=== PATIENT | female | born 1985 | race Caucasian/White ===

== ENCOUNTER 2016-08-08 08:02 | Day surgery (SDC) | payer OTHER ==
[2016-08-08 08:09] VITALS: BMI 27.0
[2016-08-08 09:05] VITALS: TEMP 97.8
[2016-08-08 09:43] VITALS: BP 110/77
[2016-08-08 10:36] VITALS: PULSE 63
--- NOTE | 2016-08-09 11:22 | PATH ---
Surgical Pathology Report Patient Name: CHERYL HUSAIN [facility]. Rec. #: [id number] /Age/Gender: 1985 (Age: 31) / F Account: [id number] Location: [facility]-ENDOSCOPY Taken: 08/08/2016 Received: 08/08/2016 Reported: 08/09/2016 Physicians: Jimmie Hooper M.D. Specimen(s) Received A: BX EROSIVE GASTRITIS B: BX DISTAL ESOPHAGUS Clinical History Epigastric pain, GERD Erosive gastritis, extrinsic compression in body of stomach Final Diagnosis A. STOMACH, EROSIVE GASTRITIS, BIOPSY: GASTRIC OXYNTIC MUCOSA WITH ACTIVE MODERATE TO MARKED CHRONIC GASTRITIS WITH FOCAL SURFACE EROSION. IMMUNOSTAIN FOR H. PYLORI IS POSITIVE FOR ORGANISMS (MANY ORGANISMS). B. ESOPHAGUS, DISTAL, BIOPSY: SQUAMOUS EPITHELIUM WITH CHRONIC INFLAMMATION AND REFLUX TYPE CHANGES. NO COLUMNAR EPITHELIUM PRESENT (NO INTESTINAL METAPLASIA/FELDMAN'S ESOPHAGUS IDENTIFIED). Electronically Signed Matt Saunders M.D. Gross Description A. Received in formalin, labeled "biopsy erosive gastritis" are 3 saldaña, irregular portions of soft tissue ranging from 0.2-0.3 cm in greatest dimension. The specimens are submitted in toto in one cassette. B. Received in formalin, labeled "biopsy distal esophagus" is a saldaña, irregular portion of soft tissue measuring 0.3 cm in greatest dimension. The specimen is submitted in toto in one cassette. /08/08/2016 saudi08/08/2016
== END 2016-08-08 10:37 | disposition home or self-care (01) ==
LOC: JASU-ENDO 08:02
PROVIDERS: ATTEND Internal Medicine Gastroenterology
PROC: 0DB68ZX Excision of Stomach, Via Natural or Artificial Opening Endoscopic, Diagnostic (ICD-10-PCS; 2016-08-08)
PROC: 0DB38ZX Excision of Lower Esophagus, Via Natural or Artificial Opening Endoscopic, Diagnostic (ICD-10-PCS; principal; 2016-08-08 08:30)
DX: K29.60 Other gastritis without bleeding (principal); K25.7 Chronic gastric ulcer without hemorrhage or perforation; K20.9 Esophagitis, unspecified; B96.81 Helicobacter pylori [H. pylori] as the cause of diseases classified elsewhere
CPT/HCPCS: 84703; 88305-TC; 88342-TC

== ENCOUNTER 2017-08-22 12:30 | Inpatient (IN) | payer OTHER ==
[2017-08-22] MEDS ORDERED: DEXTROSE 5%-LACTATED RINGERS 500 ML IV SCH (12:40)
[2017-08-22] MEDS ORDERED: DEXTROSE 5%-LACTATED RINGERS 1,000 ML IV SCH (13:10)
[2017-08-22 15:29] VITALS: BMI 30.9
[2017-08-22] MEDS: DEXTROSE 5%-LACTATED RINGERS 1,000 ML IV SCH (16:15)
[2017-08-22] MEDS ORDERED: TUBERCULIN PPD 5 TU/0.1ML SYRINGE (IN PATIENT USE ONLY) ID ONE (16:15)
[2017-08-22 17:54] LABS: BASO % 0.2 % (0-2.0); HEMATOCRIT 38.1 % (32.4-45.2); HEMOGLOBIN 12.7 GM/dL (10.7-15.3); LYMPH % 5.3 % (8-40); MCH 27.5 pg (25.7-33.7); MCHC 33.3 g/dl (32.0-36.0); MEAN CELL VOLUME 82.7 fl (80-96); MONO % 5.1 % (3.8-10.2); NEUT % 89.4 % (42.8-82.8); PLATELET COUNT 234 K/MM3 (134-434); RBC 4.61 M/mm3 (3.60-5.2); RDW 14.6 % (11.6-15.6); WHITE BLOOD COUNT 11.5 K/mm3 (4.0-10.0)
[2017-08-22 18:11] LABS: INR 0.98 (0.82-1.09); PROTHROMBIN TIME (PATIENT) 11.1 SEC (9.7-13.0)
[2017-08-22 18:14] LABS: ACTIVATED PTT 23.8 SECONDS (25.2-36.5)
[2017-08-22 18:24] LABS: ANION GAP 10 (8-16); BLOOD UREA NITROGEN 4 mg/dL (7-18); CALCIUM 8.5 mg/dL (8.5-10.1); CHLORIDE 104 mmol/L (98-107); CO2 24 mmol/L (21-32); CREATININE 0.5 mg/dL (0.55-1.02); GLUCOSE,RANDOM 94 mg/dL (74-106); POTASSIUM 3.8 mmol/L (3.5-5.1); SODIUM 138 mmol/L (136-145)
--- NOTE | 2017-08-22 19:57 | HP ---
Past Medical History - Admission History of Present Illness: 32 yo @ 39 3/7 wks by first trimester ultrasound, EDC 08/26/2017 complicated by: History of infertility, s/p failed IVF x 3; spontaneous She reports contractions which began this morning and increased in intensity and frequency. She reports movement, denies leakage of fluid or vaginal bleeding. History Source: Patient Limitations to Obtaining History: No Limitations - Past Medical History Cardiovascular: No: HTN Pulmonary: No: Asthma Gastrointestinal: No: GERD ...: 2 ...Para: 1 ...Term: 1 ...: 0 ...LMP: 11/06/16 ... Weeks Gestation by Dates: 41.2 ...EDC by Dates: 08/13/17 ...EDC by Sono: 08/26/17 Heme/Onc: No: Anemia ENT: Yes: Allergic Rhinitis - Past Surgical History Past Surgical History: Yes: None, Cholecystectomy Hx Myomectomy: No Hx Transabdominal Cerclage: No - Smoking History Smoking history: Never smoked Have you smoked in the past 12 months: No - Alcohol/Substance Use Hx Alcohol Use: No History of Substance Use: reports: None - Social History ADL: Independent History of Recent Travel: No Home Medications - Allergies Allergies/Adverse Reactions: Allergies Allergy/AdvReac Type Severity Reaction Status Date / Time No Known Allergies Allergy Verified 02/03/15 06:45 - Home Medications Home Medications: Ambulatory Orders Vitamins (Sjr) - 1 tab PO DAILY 08/22/17 Family Disease History - Family Disease History Family History: Denies Review of Systems - Review of Systems Constitutional: reports: No Symptoms Cardiovascular: reports: No Symptoms Respiratory: reports: No Symptoms Gastrointestinal: reports: No Symptoms Genitourinary: reports: No Symptoms Breasts: reports: No Symptoms Reported Musculoskeletal: reports: No Symptoms Integumentary: reports: No Symptoms Hematology/Lymphatic: reports: No Symptoms Psychiatric: reports: No Symptoms Physical Exam - Maternity Vital Signs: Vital Signs Temperature 98 F 08/22/17 18:05 Pulse Rate 110 H 08/22/17 19:00 Respiratory Rate 20 08/22/17 19:00 Blood Pressure 120/76 08/22/17 19:00 O2 Sat by Pulse Oximetry (%) Constitutional: Yes: Well Nourished, No Distress, Calm Cardiovascular: Yes: Regular Rate and Rhythm Lungs: Clear to auscultation - Abdominal Exam/OB Number of Fetuses: Single Presentation: Vertex Contractions: Yes Regularity: Regular Category: I Accelerations: Non-Uniform Decelerations: None - Physical Exam Edema: No ...Motor Strength: WNL Psychiatric: Yes: Alert, Oriented - Labs Lab Results: CBC, BMP 08/22/17 17:00 08/22/17 17:00 PNL: B Pos, antibody neg; RPR NR; HIV neg; HBS Ag neg; HCV neg; Rubella Immune; Varicella Immune; Hg Magy AA; GCT WNL; GBS neg Hemorrhage Risk Assessment - Risk Factors Medium Risk Factors: Yes: None High Risk Factors: Yes: None Risk Score: 1 Risk Level: Medium Risk Assessment/Plan 32 yo @ 39+ wks active labor 1. Admit to L&D 2. Consents reviewed and signed 3. GBS neg 4. Category I FHT 5. Will offer pain medication upon patient request
--- NOTE | 2017-08-22 20:15 | PN ---
Ante-Partal Exam - Subjective Subjective: pain with contractions Vital Signs: Vital Signs Temperature 98 F 08/22/17 18:05 Pulse Rate 110 H 08/22/17 19:00 Respiratory Rate 20 08/22/17 19:00 Blood Pressure 120/76 08/22/17 19:00 O2 Sat by Pulse Oximetry (%) Bleeding: No Headache: No Visual changes: No Right upper quadrant pain: No - Contractions Contractions: Yes Regularity: Regular Intensity: Mod/Strong Monitor Mode: External - Exam during Labor Heart Rate: 135 Variability: Moderate Category: I Monitor Accelerations: Present Monitor Decelerations: None Exam: Vaginal Dilatation (cm): 5 Effacement (%): 90 Amniotic Membrane Status: Ruptured Amniotic Fluid: Meconium Stained Presentation: Vertex Station: -1 - Intrapartum Hemorrhage Risk Medium Risk Factors: None High Risk Factors: None Risk Score: 0 Risk Level: Low Risk - Assessment/Plan Assessment/Plan: 32 yo @ 39 wks, active labor 1. Good cervical change 2. Category I FHT 3. GBS neg 4. Desires epdirual for pain control
[2017-08-22] MEDS ORDERED: FENTANYL/BUPIVACAINE/NS/PF - PCEA - 50 ML DISP.SYRIN EP ONE (20:52)
[2017-08-22] MEDS ORDERED: OXYTOCIN 20 UNITS in 0.9% NS 20 UNIT/1,000 ML INFUS.BAG IV ONE (21:07)
[2017-08-22] MEDS ORDERED: NALOXONE HCL 0.4 MG/ML VIAL IVPUSH PRN (21:36)
[2017-08-22] MEDS ORDERED: FENTANYL/BUPIVACAINE/NS/PF - PCEA - 50 ML DISP.SYRIN EP SCH (21:45)
[2017-08-22] MEDS ORDERED: BISACODYL 10 MG SUPP.RECT RC PRN (22:08)
[2017-08-22] MEDS ORDERED: BENZOCAINE 20% 57 GM BOTTLE TP PRN (22:08)
[2017-08-22] MEDS ORDERED: WITCH HAZEL 50% (TUCKS) 40 PAD/JAR PAD TP PRN (22:08)
[2017-08-22] MEDS ORDERED: METHYLERGONOVINE MALEATE 0.2 MG/1 ML AMP IM PRN (22:08)
[2017-08-22] MEDS ORDERED: BENZOCAINE 28 GM HEMORRHOIDAL OINTMENT TP PRN (22:08)
--- NOTE | 2017-08-22 22:08 | PN ---
Delivery - Delivery Vaginal Delivery: No Problems Type of Anesthesia: Epidural Episiotomy/Laceration: Midline, 1st degree EBL (cc): 300 Delivery, Single - Stages of Labor Date 1st Stage Initiatied: 08/22/17 Time 1st Stage Initiated: 15:00 Date 2nd Stage Initiated: 08/22/17 Time 2nd Stage Initiated: 21:30 Date of Delivery: 08/22/17 Time of Delivery: 21:45 Date Placenta Delivered: 08/22/17 Time Placenta Delivered: 21:50 Placenta: Yes: Spontaneous - Condition of Infant Infant Gender: Male Position: Left, OA Total Hours ROM (Hrs/Mins): 1 hour 41 minutes - 1 Minute Total Score: 9 5 Minutes Total Score: 9 - Feeding Plan Initial Plan: Elected not to breastfeed exclusively throughout hospitalization Remarks - Remarks Remarks: Patient progressed to fully dilated and at 2145 via delivered a viable male infant in CHRISTIANO position, APGARs 9,9. Weight and length unknown at this time. Head delivered spontaneously followed by shoulders and body without difficulty. Infant with spontaneous cry and placed on mother's abdomen. Nose and mouth was bulb suctioned. Cord was clamped and cut. Perineum and vagina examined, a first degree laceration was noted and repaired in the usual fashion. Placenta was delivered spontaneously and intact. 20 units of pitocin in 1 L IVF was given. All counts correct x 2. Mother and infant stable in LDR. EBL 300cc.
[2017-08-22] MEDS ORDERED: OXYTOCIN 20 UNITS in 0.9% NS 20 UNIT/1,000 ML INFUS.BAG IV SCH (22:15)
[2017-08-22] MEDS ORDERED: ACETAMINOPHEN 325 MG TABLET (FP) ONE (23:26)
[2017-08-22] MEDS ORDERED: IBUPROFEN 600 MG TABLET (FP) PO ONE (23:26)
[2017-08-22] MEDS: ACETAMINOPHEN 325 MG TABLET (FP) PO PRN (23:30)
[2017-08-22] MEDS: IBUPROFEN 600 MG TABLET (FP) PO PRN (23:30)
--- NOTE | 2017-08-23 00:50 | PN ---
Post Progress Note - Subjective Subjective: Patient without acute complaints. Reports tolerating oral intake without nausea or vomiting. Ambulating without dizziness. Denies fevers or chills. Pain well controlled with oral pain medication. without difficulty. No flatus yet. Post Day: 1 Type of Delivery: Vital Signs: Vital Signs Temperature 98.3 F 08/22/17 22:00 Pulse Rate 91 H 08/22/17 22:45 Respiratory Rate 18 08/22/17 22:45 Blood Pressure 115/73 08/22/17 22:45 O2 Sat by Pulse Oximetry (%) 100 08/22/17 22:45 Breast Exam: Yes: Engorged Uterus: Yes: Fundus Firm Abdomen/GI: Yes: Abdomen soft, Passing flatus, Tolerating PO. No: Abdominal Distention, Tender Lochia, amount: Small Extremities: Yes: Calves non-tender. No: Edema Activity: Ambulating - Labs Labs: CBC WBC 11.5 K/mm3 (4.0-10.0) H 08/22/17 17:00 RBC 4.61 M/mm3 (3.60-5.2) 08/22/17 17:00 Hgb 12.7 GM/dL (10.7-15.3) 08/22/17 17:00 Hct 38.1 % (32.4-45.2) 08/22/17 17:00 MCV 82.7 fl (80-96) 08/22/17 17:00 MCH 27.5 pg (25.7-33.7) 08/22/17 17:00 MCHC 33.3 g/dl (32.0-36.0) 08/22/17 17:00 RDW 14.6 % (11.6-15.6) D 08/22/17 17:00 Plt Count 234 K/MM3 (134-434) 08/22/17 17:00 MPV 7.0 fl (7.5-11.1) L 08/22/17 17:00 Absolute Neuts (auto) 10.3 # 08/22/17 17:00 Neutrophils % 89.4 % (42.8-82.8) H D 08/22/17 17:00 Lymphocytes % 5.3 % (8-40) L D 08/22/17 17:00 Monocytes % 5.1 % (3.8-10.2) 08/22/17 17:00 Eosinophils % 0.0 % (0-4.5) D 08/22/17 17:00 Basophils % 0.2 % (0-2.0) 08/22/17 17:00 Nucleated RBC % 0 % (0-0) 08/22/17 17:00 Assessment/Plan 32 yo PPD # 1 s/p , afebrile, vital signs stable, doing well 1. Continue routine care. 2. AM CBC without signs of anemia 3. Rh positive status, no rhogam indicated. 4. Encourage ambulation 5. Continue oral pain medication 6. Anticipate discharge home day #2
[2017-08-23] MEDS: oxyCODONE HCL 5 MG TABLET PO PRN ×2 (02:05→16:06)
[2017-08-23] MEDS: ACETAMINOPHEN 325 MG TABLET (FP) PO PRN ×2 (06:01→16:07)
[2017-08-23] MEDS: IBUPROFEN 600 MG TABLET (FP) PO PRN (06:02)
[2017-08-23 07:21] LABS: BASO % 0.1 % (0-2.0); HEMATOCRIT 35.9 % (32.4-45.2); HEMOGLOBIN 11.9 GM/dL (10.7-15.3); LYMPH % 9.8 % (8-40); MCH 27.6 pg (25.7-33.7); MCHC 33.2 g/dl (32.0-36.0); MEAN CELL VOLUME 83.1 fl (80-96); MEAN PLT VOLUME 7.4 fl (7.5-11.1); MONO % 4.8 % (3.8-10.2); NEUT % 85.3 % (42.8-82.8); PLATELET COUNT 218 K/MM3 (134-434); RBC 4.32 M/mm3 (3.60-5.2); RDW 14.7 % (11.6-15.6); WHITE BLOOD COUNT 16.9 K/mm3 (4.0-10.0)
[2017-08-23] MEDS: FERROUS SO4 325 MG TABLET (FP) PO SCH ×3 (08:18→17:12)
[2017-08-23 08:42] LABS: RPR NONREACTIVE (NONREACTIVE)
[2017-08-23] MEDS: PRENATAL VITAMINS W/ FOLIC ACID TABLET (FP) PO SCH (09:53)
[2017-08-23] MEDS: DEXTROSE 5%-LACTATED RINGERS 1,000 ML IV SCH (20:42)
[2017-08-23] MEDS ORDERED: SENNOSIDES/DOCUSATE COMBO (SENNA PLUS) TABLET (UD) PO PRN (22:00)
[2017-08-24] MEDS: ACETAMINOPHEN 325 MG TABLET (FP) PO PRN (06:09)
[2017-08-24] MEDS: IBUPROFEN 600 MG TABLET (FP) PO PRN (06:09)
--- NOTE | 2017-08-24 07:29 | DS ---
Physical Exam-[employer] Vital Signs: Vital Signs Temperature 98.4 F 08/23/17 22:00 Pulse Rate 88 08/23/17 22:00 Respiratory Rate 18 08/23/17 22:00 Blood Pressure 99/62 08/23/17 22:00 O2 Sat by Pulse Oximetry (%) 100 08/22/17 22:45 Constitutional: Yes: Well Nourished, No Distress, Calm Eyes: Yes: WNL, Conjunctiva Clear, EOM Intact HENT: Yes: WNL, Atraumatic, Normocephalic Neck: Yes: WNL, Supple, Trachea Midline Cardiovascular: Yes: WNL, Regular Rate and Rhythm Respiratory: Yes: WNL, Regular, CTA Bilaterally Gastrointestinal: Yes: WNL ...Rectal Exam: Yes: WNL Renal/: Yes: WNL ....Post : Yes: Uterus firm, Uterus non-tender, Slight lochia rubra Breast(s): Yes: WNL Musculoskeletal: Yes: WNL Extremities: Yes: WNL Edema: No Integumentary: Yes: WNL Neurological: Yes: WNL, Alert, Oriented ...Motor Strength: WNL Psychiatric: Yes: WNL, Alert, Oriented Labs: CBC, BMP 08/23/17 06:30 08/22/17 17:00 Delivery - Delivery Vaginal Delivery: No Problems, Spontaneous Type of Anesthesia: Epidural Episiotomy/Laceration: Midline, 1st degree EBL (cc): 300 Delivery, Single - Stages of Labor Date 1st Stage Initiatied: 08/22/17 Time 1st Stage Initiated: 15:00 Date 2nd Stage Initiated: 08/22/17 Time 2nd Stage Initiated: 21:30 Date of Delivery: 08/22/17 Time of Delivery: 21:45 Time Placenta Delivered: 21:50 Placenta: Yes: Spontaneous - Condition of Infant Center [facility] Reamer/Stockfeed Miller Present: No Infant Gender: Male Weight: 7 lb 3 oz Position: Left, OA Total Hours ROM (Hrs/Mins): 1 hour 41 minutes - 1 Minute Total Score: 9 5 Minutes Total Score: 9 - Feeding Plan Initial Plan: Elected not to breastfeed exclusively throughout hospitalization Discharge Summary Reason For Visit: LABOR Current Active Problems Vaginal delivery (Acute) Procedures: Principal: Condition: Good - Instructions Diet, Activity, Other Instructions: Physical activity Resume your normal everyday activity as tolerated no heavy lifting or exercise until seen by your surgeon. You may walk unlimited matt of and climb stairs. You may resume driving the car when you feel safe and comfortable behind the wheel. No sexual activity as instructed. Diet There are no dietary restrictions. Eat healthy, high-fiber foods. Drink 6 to 8 glasses of liquid each day. This will assist in keeping your bowels are regular. Pain management You may take Tylenol or acetaminophen or Ibuprofen (for example, Motrin, Advil etc.) from my pain prescription medication is ordered should be taken as prescribed for moderate to severe pain. Call MD for any of the following: Severe pain not relieved by medication Fever of 101 or higher Excessive bleeding or drainage on dressing Inability to urinate Referrals: Xi Pompa MD [Staff Physician] - Disposition: HOME - Home Medications Comprehensive Discharge Medication List: Ambulatory Orders Vitamins (Sjr) - 1 tab PO DAILY 08/22/17
[2017-08-24] MEDS: FERROUS SO4 325 MG TABLET (FP) PO SCH ×2 (07:58→11:58)
[2017-08-24 08:51] VITALS: BP 138/73; PULSE 86; TEMP 98.7
[2017-08-24] MEDS: PRENATAL VITAMINS W/ FOLIC ACID TABLET (FP) PO SCH (09:48)
== END 2017-08-24 12:05 | disposition home or self-care (01) | DRG 775 ==
LOC: JDEL 12:30 → JLDR 15:05 → J3W 08-23 01:04
PROVIDERS: ADMIT Obstetrics & Gynecology; ATTEND Obstetrics & Gynecology
PROC: 10E0XZZ Delivery of Products of Conception, External Approach (ICD-10-PCS; principal; 2017-08-22)
PROC: 0HQ9XZZ Repair Perineum Skin, External Approach (ICD-10-PCS; 2017-08-22)
DX: O70.0 First degree perineal laceration during delivery (principal); Z3A.39 39 weeks gestation of pregnancy; Z37.0 Single live birth
CPT/HCPCS: 36415; 59409; 71046-TC-FY; 80048; 85025; 85610; 85730; 86593; 86850; 86900; 86901; 87389